=== PATIENT | male | born 1965 | race Caucasian/White ===

== ENCOUNTER 2021-04-30 12:57 | Outpatient (CLI) | payer BC, SELFPAY ==
--- NOTE | 2021-04-30 13:05 | XR_ITS ---
WS: [id number] Chest 2 views, 04/30/2021 Clinical Data: POST COVID-CHRONIC COUGH Comparison: Portable chest, 02/10/2015. Findings: No nodules, masses or effusions are seen. The heart is normal. The pulmonary vascularity is not increased. No pneumonia or pneumothorax is seen. There is minimal patchy opacity overlying the l ateral aspect of the right diaphragm which may represent atelectasis or minimal pneumonia. XR/XR chest 2V* [id number] Impression: Minimal opacity in right lower lobe overlying the lateral right diaphragm.
== END 2021-04-30 12:58 | disposition home or self-care (01) ==
PROVIDERS: PCP Nurse Practitioner; Visit Provider Nurse Practitioner
DX: R05.3 Chronic cough (principal); Z86.16 Personal history of COVID-19
CPT/HCPCS: 71046

== ENCOUNTER → 2021-10-06 13:51 | Outpatient (BNVA) | payer BC, SELFPAY | PROVIDERS: PCP Nurse Practitioner; Visit Provider Internal Medicine Cardiovascular Disease | DX: Z86.39 Personal history of other endocrine, nutritional and metabolic disease (principal); Z86.79 Personal history of other diseases of the circulatory system; I25.10 Atherosclerotic heart disease of native coronary artery without angina pectoris; E66.9 Obesity, unspecified | CPT/HCPCS: 36415; 80053; 80061; 83036; 83721; 85025 ==

== ENCOUNTER 2023-08-29 09:15 | Outpatient (CLI) | payer OTHER, SELFPAY ==
--- NOTE | 2023-08-29 09:27 | MR_ITS ---
WS: [id number] MRI RIGHT KNEE NONCONTRAST TECHNIQUE: Axial PD, coronal PD fat sat, coronal PD, sagittal PD, and sagittal PD fat-sat images obta ined. CLINICAL INFORMATION: PAIN IN R KNEE COMPARISON: None. FINDINGS: Distal quadriceps and patella tendons are intact. Hypertrophic patella. Moderate to advanced tricompa rtmental arthritis worse in the medial joint compartment with subchondral edema. Grade IV chondromala joaquin medial joint compartment. Moderate chondromalacia patella. Medial and lateral collateral ligament s appear intact. Radial tear involving the root of the medial meniscus posterior horn with peripheral extrusion. Chron ic degeneration medial meniscus with peripheral extrusion. ACL and PCL are intact. Small lobulated po pliteal cyst. Popliteal cyst measures approximately 2.5 x 1.0 cm. MR/MR knee RT wo con* [id number] IMPRESSION: 1. ACL and PCL are intact. 2. Moderate tricompartmental arthritis worse in the medial joint compartment w ith subchondral edema and grade IV chondromalacia. 3. Mild to moderate chondromalacia patella. 4. Radial tear involving the root of the medial meniscus with peripheral extru reno. Lateral meniscus appears intact. 5. Small popliteal cyst measuring 2.5 x 1.0 cm. Outbridge grading: grade IV: full-thickness cartilage loss with underlying bone reactive changes
== END 2023-08-29 09:16 | disposition home or self-care (01) ==
LOC: RAD 09:22
PROVIDERS: PCP Nurse Practitioner; Visit Provider Nurse Practitioner Family
DX: M13.861 Other specified arthritis, right knee (principal); M71.21 Synovial cyst of popliteal space [Baker], right knee; M94.261 Chondromalacia, right knee; S83.241A Other tear of medial meniscus, current injury, right knee, initial encounter; M23.303 Other meniscus derangements, unspecified medial meniscus, right knee
CPT/HCPCS: 73721

== ENCOUNTER → 2024-09-03 09:31 | Outpatient (BNVA) | payer OTHER, SELFPAY | PROVIDERS: PCP Nurse Practitioner Family; Visit Provider Specialist | DX: G56.02 Carpal tunnel syndrome, left upper limb (principal); Z01.818 Encounter for other preprocedural examination | CPT/HCPCS: 36415; 73110; 80053; 81001; 85025 ==

== ENCOUNTER → 2024-09-10 12:04 | Outpatient (BNVA) | payer OTHER, SELFPAY | PROVIDERS: PCP Nurse Practitioner Family; Visit Provider Family Medicine | DX: Z01.818 Encounter for other preprocedural examination (principal) | CPT/HCPCS: 93005 ==

== ENCOUNTER 2024-09-18 05:41 | Day surgery (SDC) | payer OTHER, SELFPAY ==
[2024-09-18] VITALS (7 sets, daily range): BP systolic 117–153; BP diastolic 80–104; PULSE 56–72; RESP 13–18; TEMP 36.2–36.3; O2SAT 94–97
[2024-09-18] MEDS: acetaminophen 1,000 MG/100 ML PIGGYBACK 400 MG IV (06:15)
--- NOTE | 2024-09-18 06:55 | P.HPUD_ITS ---
Surgery/Procedure H&P Update DATE OF PROCEDURE: September 18, 2024 DATE H&P PERFORMED: 09/10/24 H&P UPDATE INFORMATION: I have reviewed H&P completed within last 30 days, I have examined patient prior to procedure, No changes to prior documentation, H&P is in [facility] EMR on date indicated and Risks and benefits of the procedure reviewed PLANNED PROCEDURE: Operation Date: 09/18/24 07:00 Proposed Procedures p LEFT Carpal Tunnel Release(Left) - Miriam Yi MD Related Problem List Diagnoses (1) Carpal tunnel syndrome, left:
--- NOTE | 2024-09-18 06:58 | W.PM.OPSUD ---
Surgery/Procedure H&P Update DATE OF PROCEDURE: September 18, 2024 DATE H&P PERFORMED: 09/10/24 H&P UPDATE INFORMATION: I have reviewed H&P completed within last 30 days, I have examined patient prior to procedure, No changes to prior documentation, H&P is in [facility] EMR on date indicated and Risks and benefits of the procedure reviewed PLANNED PROCEDURE: Operation Date: 09/18/24 07:00 Proposed Procedures p LEFT Carpal Tunnel Release(Left) - Miriam Yi MD Related Problem List Diagnoses (1) Primary osteoarthritis of left knee:
[2024-09-18] MEDS: ceFAZolin 2,000 mg SDV 2000 MG IVP (07:00)
--- NOTE | 2024-09-18 07:00 | ANES.PREANE2 ---
Pre-Anesthetic Assessment Height/Weight: Height 1.88 m Weight 115.666 kg Temp Pulse Resp BP Pulse Ox O2 Del Method 97.4 F L 69 18 148/104 96 Room Air 09/18/24 06:02 09/18/24 06:02 09/18/24 06:02 09/18/24 06:02 09/18/24 06:02 09/18/24 06:02 Operation Date: 09/18/24 07:00 Proposed Procedures p LEFT Carpal Tunnel Release(Left) - Miriam Yi MD Familial anesthetic complications: None Was Beta Samanta taken within 24 hours: N/A Was Clonidine taken within 24 hours: N/A Last intake: Intake Last Liquid Date 09/17/24 Last Liquid Time 17:00 Last Solid Date 09/17/24 Last Solid Time 18:00 Social No alcohol and No tobacco Exam alert, oriented x 3, clear to auscultation bilaterally and regular rate & rhythm Airway Mallampati: Class II Dentition: full CV/HEM Coronary Artery Disease, Hypertension and Myocardial Infarction (8 years ago) Anesthetic Plan ASA status: 3 Anesthesia: General Risk of > 500 ml blood loss (7ml/kg in children): No Medications/Allergies Home Medications ?Medication ?Instructions ?Recorded ?Confirmed ?Last Taken ?Type aspirin 81 mg tablet,delayed 81 mg PO DAILY #90 tabs 01/26/24 09/18/24 09/11/24 Rx release (Adult Aspirin Regimen) valsartan 160 1 tab PO DAILY #90 tabs 01/26/24 09/18/24 09/17/24 Rx mg-hydrochlorothiazide 25 mg tablet atorvastatin 80 mg tablet 80 mg PO BEDTIME 09/17/24 09/18/24 09/17/24 History clopidogrel 75 mg tablet 75 mg PO DAILY 09/17/24 09/18/24 09/11/24 History Allergies Allergy/AdvReac Type Severity Reaction Status Date / Time No Known Allergies Allergy Verified 09/10/24 12:15 Current Medications Generic Name Dose Route Start Last Admin Trade Name Freq PRN Reason Stop Dose Admin Sodium Chloride 1,000 mls @ 30 mls/hr 09/18/24 06:00 09/18/24 06:13 Sodium Chloride 0.9% IV 09/19/24 05:59 30 mls/hr .Q24H BERNARDO Administration PFSH Anesthesia Medical History Old [place] (myocardial infarction) Obesity (BMI 30-39.9) Hx of hyperlipidemia Hx of arteriosclerotic cardiovascular disease Hx of cardiomyopathy History of hypertension Surgical History History of PTCA Social History Smoking and tobacco/nicotine status: never used tobacco/nicotine
[2024-09-18] MEDS: BUPivacaine 0.5% INJ 30 mL INJECTION (07:25)
--- NOTE | 2024-09-18 08:08 | P.OP_ITS ---
Operative Report Date of procedure: September 18, 2024 Pre-op diagnosis: Left carpal tunnel syndrome Post-op diagnosis: Left carpal tunnel syndrome Post-op findings: Severe compression across the carpal canal Procedure done: Left carpal tunnel release Implants: None Specimens removed/disposition: None Pathology: None Surgeon: Miriam Yi MD Survey Questionnaire Designer: None Anesthesia: General (Per LMA, ASA 3) Estimated blood loss (mL): 2 Tourniquet time (min): 21 (At 250 mmHg) IV fluids (mL): 700 Urine output (mL): 0 (No Arzo) Complications: None Findings: Severe compression across the carpal canal Condition: stable Disposition: PACU (Then return to same-day surgery for discharge to home) Brief History: This 59-year-old gentleman presented with complaints of left wrist pain and numbness and tingling consistent with carpal tunnel syndrome. This had been ongoing for about 20 years, but had worsened more recently. Patient had nerve conduction study demonstrating bilateral carpal tunnel syndrome. After discussion in the office, plans were made for carpal tunnel release. The patient wishes to start with the left as it was more symptomatic for him. Procedure: The patient was brought to the operating theater. The patient had a general anesthesia per LMA, ASA 3. The tourniquet was elevated to 250 mmHg for a total tourniquet time of 21 minutes. The patient was also given Ancef 2 g preoperatively. The arm was then prepped and draped with DuraPrep in usual fashion with the arm draped free. A surgical pause was performed. At the time of the surgical pause, we confirmed the site and side of surgery. We also confirmed the patient's identity, appropriate and timely administration of preoperative antibiotics and preoperative surgical markings. An incision was then made along the thenar crease. The incision crossed the wrist joint in a curvilinear fashion. Dissection continued through skin and soft tissues using a scalpel. The palmaris longus was identified along with the transverse carpal ligament. Each of these was released carefully to avoid injury to the median nerve. We were able to dissect gently into the carpal canal which was noted to be quite tight with significant compression across the median nerve. The nerve was visualized and was an hourglass shape. The canal was subsequently palpated to assure there was no bony encroachment upon the canal. The canal was then palpated distally and proximally to assure that my small finger passed easily without impingement. Finding this to be so, attention was directed to closure. The wound was irrigated with ropivacaine plain. It was then closed with 3-0 nylon in an interrupted mattress fashion. Sterile dressing was then placed consisting of Dermabond, OpSite, fluffed fluffs, sterile soft roll, and an Korey wrap. The tourniquet was released after 21 minutes. There were no complications. There were no specimens. The procedure was well tolerated. Plan is the patient will be discharged home.
--- NOTE | 2024-09-18 08:50 | ANE.PACU2 ---
Inpatient post-anesthesia follow up: Airway intact: Yes Vital signs: Temperature 97.2 F Pulse Rate 56 Respiratory Rate 18 Blood Pressure 135/92 Pulse Oximetry 97 Oxygen Delivery Me thod Room Air Oxygen Flow Rate Fraction of Inspir ed Oxygen Hydration adequate: Yes Nausea and vomiting: No Pain level: 1 Mental status: Baseline
== END 2024-09-18 08:50 | disposition home or self-care (01) ==
PROVIDERS: PCP Nurse Practitioner Family; Visit Provider Specialist
PROC: (CPT 64721; principal; 2024-09-18 07:00)
DX: G56.02 Carpal tunnel syndrome, left upper limb (principal); I25.10 Atherosclerotic heart disease of native coronary artery without angina pectoris; I10 Essential (primary) hypertension; I25.2 Old myocardial infarction; Z79.82 Long term (current) use of aspirin; E66.9 Obesity, unspecified; Z68.32 Body mass index [BMI] 32.0-32.9, adult; E78.5 Hyperlipidemia, unspecified
CPT/HCPCS: 64721; J0131; J0690; J2405; J2704; J3010; J3490; J7030; J9999

== ENCOUNTER 2024-10-30 06:19 | Day surgery (SDC) | payer OTHER, SELFPAY ==
[2024-10-30 06:43] VITALS: BP 162/121; PULSE 94; RESP 18; TEMP 36.1; O2SAT 95; BMI 32.2
--- NOTE | 2024-10-30 07:04 | W.PM.OPSFHP ---
Same Day Surgery H&P Indication for Procedure/HPI DATE OF PROCEDURE: October 30, 2024 CHIEF COMPLAINT/INDICATIONFOR SURGICAL PROCEDURE: screening colonoscopy PREOP DIAGNOSIS: screening colonoscopy PLANNED PROCEDURE: Operation Date: 10/30/24 07:30 Proposed Procedures p Colonoscopy [id number] G0121, Z12.11(Not Applicable) - Fede Hurtado MD Medications/Allergies* Home Medications ?Medication ?Instructions ?Recorded ?Confirmed ?Type atorvastatin 80 mg tablet 80 mg PO BEDTIME 09/17/24 10/26/24 History clopidogrel 75 mg tablet 75 mg PO DAILY 09/17/24 10/26/24 History Allergies/Adverse Reactions Allergy/AdvReac Type Severity Reaction Status Date / Time No Known Allergies Allergy Verified 10/26/24 09:46 Current Medications: Generic Name Dose Route Start Last Admin Trade Name Freq PRN Reason Stop Dose Admin Sodium Chloride 1,000 mls @ 15 mls/hr 10/30/24 06:26 10/30/24 06:47 Sodium Chloride 0.9% IV 10/31/24 06:25 15 mls/hr .Q24H PRN Administration COLONOSCOPY FLUIDS Pertinent History/Comorbid Conditions* Medical History (Updated 09/19/24 @ 00:00 by SUNNY Greenberg) Old [place] (myocardial infarction) Obesity (BMI 30-39.9) Hx of hyperlipidemia Hx of arteriosclerotic cardiovascular disease Hx of cardiomyopathy History of hypertension Surgical History (Updated 10/10/19 @ 22:14 by Sharron Fabian MD) History of PTCA Social History Smoking and tobacco/nicotine status: never used tobacco/nicotine Pertinent Exam Findings alert, oriented x 3, clear to auscultation bilaterally, regular rate & rhythm and procedure specific exam findings abdomen soft, nt,nd Recommendations Risks and benefits of procedure reviewed and Patient/family agree to proceed Surgery/Procedure today Coding Level of Care Code Acute Code for Chg Fwd
--- NOTE | 2024-10-30 07:17 | ANES.PREANE2 ---
Pre-Anesthetic Assessment Height/Weight: Height 1.88 m Weight 113.852 kg Temp Pulse Resp BP Pulse Ox O2 Del Method 97.0 F L 94 18 162/121 95 Room Air 10/30/24 06:43 10/30/24 06:43 10/30/24 06:43 10/30/24 06:43 10/30/24 06:43 10/30/24 06:43 Preop Diagnosis: screening colonoscopy Operation Date: 10/30/24 07:30 Proposed Procedures p Colonoscopy [id number] G0121, Z12.11(Not Applicable) - Fede Hurtado MD Was Beta Samanta taken within 24 hours: N/A Was Clonidine taken within 24 hours: N/A Last intake: Intake Last Liquid Date 10/29/24 Last Liquid Time 20:00 Last Solid Date 10/28/24 Last Solid Time 17:00 Social No alcohol and No tobacco Exam alert, oriented x 3, clear to auscultation bilaterally and regular rate & rhythm Airway Submandibular: within normal limits Cervical ROM: within normal limits Mallampati: Class II Dentition: full History/ROS No significant history except as noted and No significant complaints Pulmonary None reported CV/HEM Coronary Artery Disease, Hypertension and Myocardial Infarction (StentsX2 at 51yo) None reported Hepatic None reported GI None reported Metabolic None reported Musc/skel Osteoarthritis/DJD Neuropsych None reported Anesthetic Plan ASA status: 3 Anesthesia: Anesthesia Evaluation and MAC Risk of > 500 ml blood loss (7ml/kg in children): No Medications/Allergies Home Medications ?Medication ?Instructions ?Recorded ?Confirmed ?Last Taken ?Type aspirin 81 mg tablet,delayed 81 mg PO DAILY #90 tabs 01/26/24 10/26/24 10/23/24 Rx release (Adult Aspirin Regimen) valsartan 160 1 tab PO DAILY #90 tabs 01/26/24 10/26/24 10/26/24 Rx mg-hydrochlorothiazide 25 mg tablet atorvastatin 80 mg tablet 80 mg PO BEDTIME 09/17/24 10/26/24 10/25/24 History clopidogrel 75 mg tablet 75 mg PO DAILY 09/17/24 10/26/24 10/23/24 History Allergies Allergy/AdvReac Type Severity Reaction Status Date / Time No Known Allergies Allergy Verified 10/26/24 09:46 Current Medications Generic Name Dose Route Start Last Admin Trade Name Freq PRN Reason Stop Dose Admin Sodium Chloride 1,000 mls @ 15 mls/hr 10/30/24 06:26 10/30/24 06:47 Sodium Chloride 0.9% IV 10/31/24 06:25 15 mls/hr .Q24H PRN Administration COLONOSCOPY FLUIDS PFSH Anesthesia Medical History Old [place] (myocardial infarction) Obesity (BMI 30-39.9) Hx of hyperlipidemia Hx of arteriosclerotic cardiovascular disease Hx of cardiomyopathy History of hypertension Surgical History History of PTCA Social History Smoking and tobacco/nicotine status: never used tobacco/nicotine
[2024-10-30 08:03] VITALS: BP 122/89; PULSE 95; RESP 20; TEMP 36.1; O2SAT 94
[2024-10-30 08:18] VITALS: BP 139/102; PULSE 75; RESP 18; O2SAT 95
[2024-10-30 08:25] VITALS: BP 127/86; PULSE 77; RESP 18; O2SAT 95
--- NOTE | 2024-10-30 08:55 | ANE.PACU2 ---
Inpatient post-anesthesia follow up: Airway intact: Yes Vital signs: Temperature 97 F Pulse Rate 77 Respiratory Rate 18 Blood Pressure 127/86 Pulse Oximetry 95 Oxygen Delivery Me thod Room Air Oxygen Flow Rate Fraction of Inspir ed Oxygen Hydration adequate: Yes Nausea and vomiting: No Pain level: 1 Mental status: Baseline
--- NOTE | 2024-10-30 09:01 | SUR.OPER ---
cecum time [id number]
== END 2024-10-30 08:55 | disposition home or self-care (01) ==
PROVIDERS: PCP Nurse Practitioner Family; Visit Provider Student in an Organized Health Care Education/Training Program
PROC: 0DJD8ZZ Inspection of Lower Intestinal Tract, Via Natural or Artificial Opening Endoscopic (ICD-10-PCS; CPT 45378; principal; 2024-10-30 07:30)
DX: Z12.11 Encounter for screening for malignant neoplasm of colon (principal); D12.8 Benign neoplasm of rectum; I25.2 Old myocardial infarction; E66.9 Obesity, unspecified; Z68.32 Body mass index [BMI] 32.0-32.9, adult; E78.5 Hyperlipidemia, unspecified; I25.10 Atherosclerotic heart disease of native coronary artery without angina pectoris; I10 Essential (primary) hypertension; Z79.82 Long term (current) use of aspirin
CPT/HCPCS: 45380; 88305; J2704; J7030; J9999